=== PATIENT | male | born 1995 | race Caucasian/White ===

== ENCOUNTER 2023-01-29 18:30 | Emergency (ER) | payer MEDICAID, SELFPAY ==
[2023-01-29 18:30] VITALS: BP 130/86; PULSE 65; TEMP 36.3; O2SAT 95
--- NOTE | 2023-01-29 18:30 | DI.RAD_ITS ---
Exam(s) XR KNEE LT 3V AP,LAT,BAKARI EXAM: XR KNEE LT 3V AP,LAT,BAKARI CLINICAL HISTORY: lateral pain. TECHNIQUE: 2D digital imaging was performed. COMPARISON: No exams were available for comparison FINDINGS: 3 views No evidence of fracture or joint effusion. No joint space narrowing. Bone density normal. No osseo us lesions. No osteochondral defects evident. IMPRESSION: No acute osseous findings in the knee. DATA REPOSITORY: RADIATION DOSE DELIVERED:
--- NOTE | 2023-01-29 18:42 | ED.GENADUL_ITS ---
Discharge Plan Disposition Patient Disposition: Home Discharge Details Clinical Impression: Outbursts of explosive behavior, Acute knee pain Primary Care Provider: Tino Fofana ED Provider: Ravinder Ko Discharge Instructions Instructions: Knee Pain (ED) Additional Instructions: Patient may continue to take tele-bre-hscmmzk pain medications and use ice as needed for further knee discomfort. Feel free to follow-up with primary care provider as needed for recheck of any symptoms and return to the emergency department as needed Referrals: Tino Fofana [Primary Care Provider] - Medical Decision Making Patient presenting to the emergency department via EMS for complaint of knee pain along with behavioral outburst. Patient has past medical history of Down syndrome and due to unmet family expectations today patient had significant outburst and I was informed by EMS that there was some throwing of objects due to patient being upset. In the incident patient injured his right knee. Patient now calm and cooperative, no behavioral outburst noted, no homicidal or suicidal ideations. Exam shows tenderness to the left patella with abrasion to this area otherwise unremarkable exam. Radiological imaging was performed and shows no acute findings to the knee. Father did arrive to the department and stated history of patient having emotional outburst with aggression in the past. Given that patient has been calm cooperative and does not seem to be different than baseline I do not feel this is acute psychosis and does not require acute psychiatric evaluation as I see no further evidence of concern. Patient discharged with family. after discussion of diagnosis and plan of care patient and family has no further needs, questions, or concerns and states clear und erstanding to return to the emergency department for any worsening symptoms. This documentation was generated using [employer] dictation system, please disregard any oddities of phrase or misspellings. Imaging Data Radiologic Study: Imaging: X-Ray Radiologist's impression: Exam(s) PROCEDURE INFORMATION: Exam: XR Left Knee Exam date and time: 01/29/2023 7:07 PM Age: 27 years old Clinical indication: Other: Lateral pain TECHNIQUE: Imaging protocol: Radiologic exam of the left knee. Views: 3 views. COMPARISON: No relevant prior studies available. FINDINGS: Bones/joints: Normal. Soft tissues: Normal. IMPRESSION: No acute findings. HPI General Mode of arrival: ambulatory (via EMS) . Date/Time Provider Initiated Documentation: 01/29/23 18:40 . Limitations to Documentation: no limitations . Information obtained by: patient and EMS . History of Present Illness 27 year old M presents to the emergency department with the chief complaint of Knee pain, behavioral outburst, described as similar to prior episodes, Quality is described as aching, and is localized to the left and lower extremity. Patient started experiencing this hour(s) (2) and it has been now resolved. No relieving factors improve symptom(s), Other factors that worsen symptoms (Family situational disappointment) . Patient notes no other symptoms.. Patient did receive the following treatments prior to arrival, none General Stated Complaint: Orthopedic YOVANI: 4 Review of Systems Constitutional Constitutional: Denies headache(s) ENT Ears, Nose, Mouth, and Throat: Denies headache(s) Cardiovascular Cardiovascular: Denies chest pain and Denies dyspnea Respiratory Respiratory: Denies dyspnea Gastrointestinal Gastrointestinal: Denies abdominal pain Musculoskeletal Musculoskeletal: Reports as per HPI and Reports arthralgias Integumentary/Breasts Skin/Breast: Reports erythema Neurologic Neurologic: Denies headache(s) Psychiatric Psychiatric: Reports as per HPI and Reports irritability PFSH All Active Problems (Updated 01/29/23 @ 19:46 by Ravinder Ko NP) Outbursts of explosive behavior (Acute) Acute knee pain (Acute) Social History Smoking/Tobacco Use Status: Unknown Smoking risk assessment performed?: Yes Exam Const General: cooperative, no acute distress and not ill appearing Orientation: alert and awake HENMT Mouth: moist mucous membranes Resp Effort & Inspection: normal respiratory effort, able to speak in complete sentences and no respiratory distress Cardio Rate: regular rate Rhythm: regular rhythm Pulses: posterior tibial pulses present and dorsalis pedis present Neuro General: patient alert, patient awake, moves all extremities and no focal motor deficits Sensory Exam: no sensory deficits noted Extrem General: normal exam except as noted Left lower extremity: knee Details: tenderness Location: of the patella, normal ROM, knee ligament exam normal (Noted hypermobility) and abrasion (Lateral patella) Course Vital Signs Vital signs: Vital Signs Temperature 36.3 C L 01/29/23 18:30 Pulse 65 01/29/23 18:30 Blood Pressure 130/86 01/29/23 18:30 Pulse Oximetry 95 01/29/23 18:30 Temperature 36.3 C L 01/29/23 18:30 Temperature Source Oral 01/29/23 18:30 Pulse 65 01/29/23 18:30 Blood Pressure 130/86 01/29/23 18:30 Blood Pressure Position Sitting 01/29/23 18:30 Pulse Oximetry 95 01/29/23 18:30 Oxygen Delivery Method Room Air 01/29/23 18:30 Oxygen Flow Rate 0 01/29/23 18:30 Pain Level 1 01/29/23 18:30
[2023-01-29] MEDS: Acetaminophen 325 MG TAB 650 MG PO (18:52)
--- NOTE | 2023-01-29 19:19 | DI.VRAD_ITS ---
PROCEDURE INFORMATION: Exam: XR Left Knee Exam date and time: 01/29/2023 7:07 PM Age: 27 years old Clinical indication: Other: Lateral pain TECHNIQUE: Imaging protocol: Radiologic exam of the left knee. Views: 3 views. COMPARISON: No relevant prior studies available. FINDINGS: Bones/joints: Normal. Soft tissues: Normal. IMPRESSION: No acute findings. Dictated and Authenticated by: Ney Smith MD. Ordering:BRISA Castellon MD
== END 2023-01-29 19:49 | disposition home or self-care (01) ==
PROVIDERS: Emergency Provider Nurse Practitioner Family; PCP Internal Medicine
DX: M25.562 Pain in left knee (principal); M25.532 Pain in left wrist; S80.212A Abrasion, left knee, initial encounter; Q90.9 Down syndrome, unspecified; W18.39XA Other fall on same level, initial encounter; Y93.89 Activity, other specified; Y92.018 Other place in single-family (private) house as the place of occurrence of the external cause; Y99.9 Unspecified external cause status
CPT/HCPCS: 73562; 99283